=== PATIENT | male | born 1965 | race Caucasian/White ===

== ENCOUNTER 2019-08-13 23:54 | Inpatient (IN) | payer OTHER ==
[~2019-08-13] VITALS: Ht 170.2 cm; Wt 100.0 kg
[2019-08-14] MEDS ORDERED: normal saline 1000ML IV soln IVB ONE ×2 (00:20)
[2019-08-14] MEDS ORDERED: pantoprazole 40 MG vial IV ONE (00:25)
[2019-08-14 00:35] LABS: BASOPHILS # (AUTO) 0.2 X10'3 (0-0.2); BASOPHILS % (AUTO) 1.2 % (0-1); EOSINOPHILS # (AUTO) 0.3 X10'3 (0-0.9); EOSINOPHILS % (AUTO) 2.5 % (0-6); HEMATOCRIT 46.8 % (42.0-52.0); LYMPHOCYTES # (AUTO) 5.4 X10'3 (1.1-4.8); LYMPHOCYTES % (AUTO) 39.4 % (21-51); MEAN CORPUSCULAR HEMOGLOBIN 31.1 PG (27.0-31.0); MEAN CORPUSCULAR HGB CONC 34.2 g/dL (33.0-36.5); MEAN PLATELET VOLUME 7.7 FL (7.4-10.4); MONOCYTES # (AUTO) 1.1 X10'3 (0-0.9); MONOCYTES % (AUTO) 7.9 % (2-12); NEUTROPHILS # (AUTO) 6.7 X10'3 (1.8-7.7); PLATELET COUNT 360 X10'3 (140-440); RED BLOOD COUNT 5.14 X10'6 (4.70-6.10); RED CELL DISTRIBUTION WIDTH 12.5 % (11.5-14.5); WHITE BLOOD COUNT 13.6 X10'3 (4.5-11.0)
[2019-08-14 00:46] LABS: ALANINE AMINOTRANSFERASE 12 U/L (12-78); ALBUMIN 3.4 G/DL (3.4-5.0); ALBUMIN/GLOBULIN RATIO 0.9 (1.1-1.5); ALKALINE PHOSPHATASE 91 IU/L (46-116); ANION GAP 7 (8-16); ASPARTATE AMINO TRANSFERASE 12 U/L (10-37); BILIRUBIN,TOTAL 0.2 MG/DL (0.1-1.0); BLOOD UREA NITROGEN 13 MG/DL (7-18); BUN/CREATININE RATIO 12.9 (5.4-32.0); CALCIUM 8.5 MG/DL (8.5-10.1); CHLORIDE 107 MMOL/L (99-107); CREATININE 1.01 MG/DL (0.60-1.10); GLUCOSE 113 MG/DL (70-104); POTASSIUM 3.5 MMOL/L (3.5-5.1); SODIUM 143 MMOL/L (135-145); eGFR 77 ML/MIN
[2019-08-14 00:57] LABS: PARTIAL THROMBOPLASTIN TIME 25 SECONDS (22-32)
[2019-08-14] MEDS ORDERED: ASPI-1053 PO (01:15)
[2019-08-14] MEDS ORDERED: MULT-933 PO (01:15)
[2019-08-14] MEDS ORDERED: S-AD200T6 PO (01:15)
[2019-08-14] MEDS ORDERED: SAW1CAPS5 PO (01:15)
[2019-08-14 02:16] LABS: BASOPHILS # (AUTO) 0.1 X10'3 (0-0.2); BASOPHILS % (AUTO) 0.4 % (0-1); EOSINOPHILS # (AUTO) 0.1 X10'3 (0-0.9); EOSINOPHILS % (AUTO) 0.3 % (0-6); HEMATOCRIT 42.1 % (42.0-52.0); HEMOGLOBIN 14.4 g/dl (14.0-17.9); LYMPHOCYTES # (AUTO) 1.5 X10'3 (1.1-4.8); LYMPHOCYTES % (AUTO) 6.9 % (21-51); MEAN CORPUSCULAR HEMOGLOBIN 30.9 PG (27.0-31.0); MEAN CORPUSCULAR HGB CONC 34.3 g/dL (33.0-36.5); MEAN CORPUSCULAR VOLUME 90.3 FL (78-98); MEAN PLATELET VOLUME 7.5 FL (7.4-10.4); MONOCYTES # (AUTO) 0.9 X10'3 (0-0.9); MONOCYTES % (AUTO) 4.4 % (2-12); NEUTROPHILS # (AUTO) 18.7 X10'3 (1.8-7.7); PLATELET COUNT 261 X10'3 (140-440); RED BLOOD COUNT 4.66 X10'6 (4.70-6.10); RED CELL DISTRIBUTION WIDTH 12.2 % (11.5-14.5); WHITE BLOOD COUNT 21.2 X10'3 (4.5-11.0)
--- NOTE | 2019-08-14 03:48 | NUR ---
dr ricardo at bedside for admission. current vss. pt denies any pain. just got up , ambulating with steady gait, to go to br. reports a small amt of bloody stool. pts has gone home for the night.
[2019-08-14] MEDS: normal saline 1000ml 1,000 ML IV SCH ×3 (04:11→19:48)
[2019-08-14] MEDS ORDERED: ondansetron/PF 4mg/2ml inj IV PRN (04:15)
[2019-08-14] MEDS ORDERED: mag hydrox/Alum hydrox/simeth 30ml oral suspension PO PRN (04:15)
[2019-08-14] MEDS ORDERED: magnesium hydroxide 30ml (MOM) UD suspension PO PRN (04:15)
[2019-08-14] MEDS ORDERED: acetaminophen 325mg tablet PO PRN (04:15)
[2019-08-14 05:39] VITALS: BP 130/96
--- NOTE | 2019-08-14 06:22 | NUR ---
Patient in room ED 12. I have received report from EMILEE ABDALLA and had the opportunity to ask questions and assume patient care. Addendum: 08/14/19 at 0639 by Maryjo Kline RN PATIENT IS IN ROOM 345B AND NOT IN ER 12.
--- NOTE | 2019-08-14 06:23 | NUR ---
Patient in room ED 12. I have received report from Gabriela and had the opportunity to ask questions and assume patient care.
[2019-08-14 07:03] VITALS: BP 124/86
[2019-08-14] MEDS ORDERED: levetiracetam inj 500 MG in normal saline 100ml IV soln 95 ML IV SCH (08:00)
[2019-08-14] MEDS ORDERED: PEG 3350/Na sulf,bicarb,Cl/KCl oral sol 4 liter bottle PO ONE ×3 (08:00→20:00)
[2019-08-14] MEDS: piperacillin/tazo 3.375gm/50ml 50 ML IV SCH ×2 (08:40→16:07)
[2019-08-14 09:00] LABS: BASOPHILS # (AUTO) 0.1 X10'3 (0-0.2); BASOPHILS % (AUTO) 0.8 % (0-1); EOSINOPHILS # (AUTO) 0.1 X10'3 (0-0.9); HEMATOCRIT 41.3 % (42.0-52.0); LYMPHOCYTES # (AUTO) 3.2 X10'3 (1.1-4.8); MEAN CORPUSCULAR HEMOGLOBIN 30.8 PG (27.0-31.0); MEAN CORPUSCULAR HGB CONC 33.8 g/dL (33.0-36.5); MEAN CORPUSCULAR VOLUME 91.1 FL (78-98); MEAN PLATELET VOLUME 7.5 FL (7.4-10.4); MONOCYTES % (AUTO) 8.3 % (2-12); NEUTROPHILS # (AUTO) 7.2 X10'3 (1.8-7.7); NEUTROPHILS % (AUTO) 61.9 % (42-75); PLATELET COUNT 257 X10'3 (140-440); RED BLOOD COUNT 4.53 X10'6 (4.70-6.10); RED CELL DISTRIBUTION WIDTH 12.5 % (11.5-14.5); WHITE BLOOD COUNT 11.6 X10'3 (4.5-11.0)
[2019-08-14 11:20] VITALS: BP 142/97
[2019-08-14 18:00] VITALS: BP 137/96
--- NOTE | 2019-08-14 18:48 | NUR ---
Received report from EMILEE Sibley. Patient is awake and alert on room air, in no apparent distress. Call light and items of frequent use within reach. Will continue to monitor.
--- NOTE | 2019-08-14 18:53 | NUR ---
Problems reprioritized. Patient report given, questions answered & plan of care reviewed with EMILEE SAMAYOA. Addendum: 08/14/19 at 1854 by Maryjo Kline RN Problems reprioritized. Patient report given, questions answered & plan of care reviewed with EMILEE SOE.
[2019-08-14] MEDS: lactobacillus rhamnosus 10,000 MMU CELLS/CAPSULE PO SCH (19:09)
[2019-08-15] VITALS (12 sets, daily range): BP systolic 124–144; BP diastolic 72–99
[2019-08-15] MEDS: piperacillin/tazo 3.375gm/50ml 50 ML IV SCH ×2 (00:36→08:37)
[2019-08-15 04:55] LABS: BASOPHILS # (AUTO) 0.1 X10'3 (0-0.2); BASOPHILS % (AUTO) 0.7 % (0-1); EOSINOPHILS # (AUTO) 0.2 X10'3 (0-0.9); EOSINOPHILS % (AUTO) 2.2 % (0-6); HEMOGLOBIN 12.5 g/dl (14.0-17.9); LYMPHOCYTES # (AUTO) 3.5 X10'3 (1.1-4.8); LYMPHOCYTES % (AUTO) 32.5 % (21-51); MEAN CORPUSCULAR HEMOGLOBIN 31.9 PG (27.0-31.0); MEAN CORPUSCULAR HGB CONC 34.7 g/dL (33.0-36.5); MEAN CORPUSCULAR VOLUME 92.1 FL (78-98); MEAN PLATELET VOLUME 7.8 FL (7.4-10.4); MONOCYTES % (AUTO) 9.1 % (2-12); NEUTROPHILS # (AUTO) 5.9 X10'3 (1.8-7.7); NEUTROPHILS % (AUTO) 55.5 % (42-75); PLATELET COUNT 237 X10'3 (140-440); RED CELL DISTRIBUTION WIDTH 12.4 % (11.5-14.5); WHITE BLOOD COUNT 10.7 X10'3 (4.5-11.0)
--- NOTE | 2019-08-15 06:42 | NUR ---
Problems reprioritized. Patient report given, questions answered & plan of care reviewed with EMILEE Arreola.
--- NOTE | 2019-08-15 06:47 | NUR ---
Patient in room [facility] 345. I have received report from colton ford and had the opportunity to ask questions and assume patient care.
[2019-08-15] MEDS: lactobacillus rhamnosus 10,000 MMU CELLS/CAPSULE PO SCH (07:09)
[2019-08-15] MEDS: normal saline 1000ml 1,000 ML IV SCH (10:11)
[2019-08-15] MEDS ORDERED: MIDAZolam 5mg/5ml vial ONE (10:12)
[2019-08-15] MEDS ORDERED: fentaNYL/PF 50MCG/1 ML 2ML syringe ONE (10:12)
--- NOTE | 2019-08-15 17:14 | NUR ---
Student documentation: I have reviewed all interventions, assessments performed and documented by Jett KELLY
--- NOTE | 2019-08-15 17:21 | NUR ---
PT DISCHARGED IN STABLE CONDITION. LEFT FACILITY IN PRIVATE VEHICLE. 2 IV DC CANULA INTACT. FOLLOW UP INSTRUCTIONS GIVEN, ALL QUESTIONS ANSWERED. Addendum: 08/15/19 at 1722 by Faye Koo RN Amended: Links added.
== END 2019-08-15 16:59 | disposition home or self-care (01) | DRG 393 ==
LOC: ER 23:57 → ED HOLD 08-14 05:21 → CMPBEDREQ 08-14 05:33 → SUR 3N 08-14 06:38 → OBSVTOIN 08-14 09:30
PROVIDERS: ADMIT Internal Medicine; ATTEND Family Medicine
PROC: 0DBN8ZZ Excision of Sigmoid Colon, Via Natural or Artificial Opening Endoscopic (ICD-10-PCS; principal; 2019-08-15)
DX: K63.5 Polyp of colon (principal); K57.31 Diverticulosis of large intestine without perforation or abscess with bleeding; D62 Acute posthemorrhagic anemia; D72.829 Elevated white blood cell count, unspecified; R61 Generalized hyperhidrosis; I95.9 Hypotension, unspecified; E66.9 Obesity, unspecified; F17.210 Nicotine dependence, cigarettes, uncomplicated; K76.0 Fatty (change of) liver, not elsewhere classified; F12.90 Cannabis use, unspecified, uncomplicated; Z68.34 Body mass index [BMI] 34.0-34.9, adult
CPT/HCPCS: 36415; 43239; 45385; 71045; 80053; 83605; 84484; 85025; 85610; 85730; 86885; 86900; 86901; 87081; 93005; 96361; 96374; 99152; 99153; 99285; A4620; C1773; C9113; G0378; J1953; J2250; J2543; J3010; J7030; J7040

== ENCOUNTER 2020-03-05 10:57 | Inpatient (IN) | payer OTHER ==
[~2020-03-05] VITALS: Ht 170.2 cm; Wt 102.3 kg
[~2020-03-05 10:57] MED LIST: ASPI-1053 PO; MULT-933 PO; S-AD200T6 PO; SAW1CAPS5 PO
[2020-03-05] MEDS ORDERED: normal saline 1000ML IV soln IVB ONE (11:25)
[2020-03-05] MEDS ORDERED: morphine 4 MG/ML inj SYRINge IV PRN (11:25)
[2020-03-05] MEDS ORDERED: ondansetron/PF 4mg/2ml inj IV ONE (11:25)
[2020-03-05] MEDS ORDERED: piperacillin/tazo 3.375gm/50ml 50 ML IV ONE (11:30)
[2020-03-05 12:03] LABS: BASOPHILS % (AUTO) 0.4 % (0-1); EOSINOPHILS % (AUTO) 0.4 % (0-6); HEMATOCRIT 47.7 % (42.0-52.0); HEMOGLOBIN 16.4 g/dl (14.0-17.9); LYMPHOCYTES # (AUTO) 1.3 X10'3 (1.1-4.8); LYMPHOCYTES % (AUTO) 10.3 % (21-51); MEAN CORPUSCULAR HEMOGLOBIN 31.2 PG (27.0-31.0); MEAN CORPUSCULAR HGB CONC 34.3 g/dL (33.0-36.5); MEAN CORPUSCULAR VOLUME 91.1 FL (78-98); MEAN PLATELET VOLUME 7.5 FL (7.4-10.4); MONOCYTES # (AUTO) 0.8 X10'3 (0-0.9); MONOCYTES % (AUTO) 6.4 % (2-12); NEUTROPHILS # (AUTO) 10.2 X10'3 (1.8-7.7); NEUTROPHILS % (AUTO) 82.5 % (42-75); PLATELET COUNT 265 X10'3 (140-440); RED BLOOD COUNT 5.24 X10'6 (4.70-6.10); RED CELL DISTRIBUTION WIDTH 13.1 % (11.5-14.5); WHITE BLOOD COUNT 12.3 X10'3 (4.5-11.0)
[2020-03-05 12:18] LABS: ALANINE AMINOTRANSFERASE 829 U/L (12-78); ALBUMIN 3.4 G/DL (3.4-5.0); ALBUMIN/GLOBULIN RATIO 0.8 (1.1-1.5); ALKALINE PHOSPHATASE 477 IU/L (46-116); ANION GAP 10 (8-16); ASPARTATE AMINO TRANSFERASE 259 U/L (10-37); BILIRUBIN,TOTAL 2.2 MG/DL (0.1-1.0); BLOOD UREA NITROGEN 7 MG/DL (7-18); BUN/CREATININE RATIO 9.5 (5.4-32.0); CALCIUM 9.2 MG/DL (8.5-10.1); CHLORIDE 100 MMOL/L (99-107); CREATININE 0.74 MG/DL (0.60-1.10); ETHANOL < 0.010 GM/DL (0.0-0.010); GLUCOSE 114 MG/DL (70-104); POTASSIUM 3.3 MMOL/L (3.5-5.1); SODIUM 136 MMOL/L (135-145); TOTAL CARBON DIOXIDE 26.4 MMOL/L (24-32); TOTAL PROTEIN 7.8 G/DL (6.4-8.2); eGFR > 90 ML/MIN
[2020-03-05 12:37] LABS: LIPASE 4363 U/L (73-393)
[2020-03-05] MEDS ORDERED: NO HOME MEDS (12:41)
[2020-03-05 13:08] LABS: CLARITY,URINE CLEAR (Clear); COLOR,URINE YELLOW (Yellow); GLUCOSE, URINE NEGATIVE (Neg); KETONES,URINE 15 mg/dl (Neg); LEUKOCYTE ESTERASE ,URINE NEGATIVE (Neg); NITRITES, URINE NEGATIVE (Neg); OCCULT BLOOD,URINE SMALL (Neg); PROTEIN,URINE NEGATIVE (Neg); UA COLLECTION TYPE CLN CATCH MIDSTREAM; UROBILINOGEN,URINE 0.2 E.U/dL (0.2-1.0)
[2020-03-05] MEDS ORDERED: diphenhydrAMINE 50 mg/ml inj IV PRN (13:15)
[2020-03-05] MEDS ORDERED: HYDROcodone/acetaminophen 5mg/325mg tablet PO PRN (13:15)
[2020-03-05] MEDS ORDERED: magnesium hydroxide 30ml (MOM) UD suspension PO PRN (13:15)
[2020-03-05] MEDS ORDERED: potassium CL 10mEq/100ml bag 100 ML IV PRN (13:15)
[2020-03-05] MEDS ORDERED: potassium Cl 20 mEq SR tablet PO PRN (13:15)
[2020-03-05] MEDS ORDERED: magnesium 4gm in 100ml NS 100 ML IV PRN (13:15)
[2020-03-05] MEDS ORDERED: magnesium Cl slow-release 64mg tablet PO PRN (13:15)
[2020-03-05] MEDS ORDERED: diphenhydrAMINE 25mg capsule PO PRN (13:15)
[2020-03-05] MEDS ORDERED: metoclopramide 5 mg/ml inj IV PRN (13:15)
[2020-03-05] MEDS ORDERED: bisacodyl 10mg suppository rectal RC PRN (13:15)
[2020-03-05] MEDS ORDERED: magnesium 2GM in 50ml NS 50 ML IV PRN (13:15)
[2020-03-05] MEDS ORDERED: mag hydrox/Alum hydrox/simeth 30ml oral suspension PO PRN (13:15)
[2020-03-05] MEDS ORDERED: acetaminophen 325mg tablet PO PRN ×2 (13:15)
[2020-03-05] MEDS ORDERED: ondansetron/PF 4mg/2ml inj IV PRN (13:15)
[2020-03-05 13:17] LABS: URINE AMPHETAMINE SCREEN NEGATIVE (Neg); URINE BARBITUATE SCREEN NEGATIVE (Neg); URINE BENZODIAZEPINES SCREEN NEGATIVE (Neg); URINE CANNABINOID SCREEN POSITIVE (Neg); URINE COCAINE SCREEN NEGATIVE (Neg); URINE METHADONE SCREEN NEGATIVE (Neg); URINE OPIATE SCREEN POSITIVE (Neg); URINE PHENCYCLIDINE SCREEN NEGATIVE (Neg)
[2020-03-05 13:19] LABS: BACTERIA,URINE FEW /HPF (Neg); MUCUS STRANDS FEW /LPF (Neg); RBC,URINE 0-2 /HPF (0-2); SQUAMOUS EPITHELIAL CELL,UR FEW /LPF (FEW); WBC,URINE 0-4 /HPF (0-4)
[2020-03-05 13:43] LABS: HEMOGLOBIN A1C 5.5 % (4.5-6.2)
[2020-03-05] MEDS: dextrose 5%-normal saline 1,000 ML IV SCH ×2 (13:50→20:54)
--- NOTE | 2020-03-05 15:23 | NUR ---
Pt returned from MRI
[2020-03-05 16:35] VITALS: BP 138/88
--- NOTE | 2020-03-05 16:35 | NUR ---
Patient in room ORTHO 4007. I have received report from JUSTINO HEBERT and had the opportunity to ask questions and assume patient care.
[2020-03-05] MEDS: potassium CL 10mEq/100ml bag 100 ML IV PRN ×3 (17:04→22:02)
--- NOTE | 2020-03-05 17:32 | NUR ---
PAGER ID: [phone] MESSAGE: AYDIN [id number] RE: KNIGHT [id number] PT SMOKES 4 CIGS/DAY, STATES HE NEEDS A PATCH.
--- NOTE | 2020-03-05 18:18 | NUR ---
Patient in room ORTHO 4007. I have received report from EMILEE Fatima and had the opportunity to ask questions and assume patient care.
--- NOTE | 2020-03-05 18:18 | NUR ---
Problems reprioritized. Patient report given, questions answered & plan of care reviewed with NICHOLE HEBERT.
[2020-03-05] MEDS: piperacillin/tazo 3.375gm/50ml 50 ML IV SCH (18:37)
[2020-03-05] MEDS: nicotine 21mg patch - 24 hr TD SCH (18:37)
[2020-03-05] MEDS: morphine 2 MG/ML inj. syringe IV PRN ×2 (18:47→23:19)
[2020-03-05] MEDS: K and/or MAG REPLACEMENT MC SCH (19:51)
[2020-03-05] MEDS: heparin, porcine 5000 units/ml vial SQ SCH (20:50)
[2020-03-05 22:00] VITALS: BP 143/93
[2020-03-06] MEDS: piperacillin/tazo 3.375gm/50ml 50 ML IV SCH ×4 (00:22→23:42)
--- NOTE | 2020-03-06 00:45 | NUR ---
Moved patient to 4014b from room 4007, moved him with all of his belongings at this time.
[2020-03-06] MEDS: potassium CL 10mEq/100ml bag 100 ML IV PRN (01:25)
[2020-03-06] MEDS: morphine 2 MG/ML inj. syringe IV PRN ×2 (04:40→07:27)
[2020-03-06 05:22] LABS: BASOPHILS % (AUTO) 0.3 % (0-1); EOSINOPHILS # (AUTO) 0.1 X10'3 (0-0.9); EOSINOPHILS % (AUTO) 0.6 % (0-6); HEMATOCRIT 44.7 % (42.0-52.0); HEMOGLOBIN 15.2 g/dl (14.0-17.9); LYMPHOCYTES # (AUTO) 1.3 X10'3 (1.1-4.8); LYMPHOCYTES % (AUTO) 10.5 % (21-51); MEAN CORPUSCULAR VOLUME 91.2 FL (78-98); MEAN PLATELET VOLUME 7.7 FL (7.4-10.4); MONOCYTES % (AUTO) 7.8 % (2-12); NEUTROPHILS # (AUTO) 9.9 X10'3 (1.8-7.7); NEUTROPHILS % (AUTO) 80.8 % (42-75); PLATELET COUNT 235 X10'3 (140-440); RED CELL DISTRIBUTION WIDTH 13.2 % (11.5-14.5); WHITE BLOOD COUNT 12.3 X10'3 (4.5-11.0)
[2020-03-06 05:30] LABS: ALANINE AMINOTRANSFERASE 579 U/L (12-78); ALBUMIN 2.8 G/DL (3.4-5.0); ALBUMIN/GLOBULIN RATIO 0.8 (1.1-1.5); ALKALINE PHOSPHATASE 381 IU/L (46-116); ANION GAP 8 (8-16); ASPARTATE AMINO TRANSFERASE 143 U/L (10-37); BILIRUBIN,TOTAL 1.5 MG/DL (0.1-1.0); BLOOD UREA NITROGEN 9 MG/DL (7-18); BUN/CREATININE RATIO 12.5 (5.4-32.0); CALCIUM 8.9 MG/DL (8.5-10.1); CHLORIDE 105 MMOL/L (99-107); CHOL/HDL RATIO 4.3 (0.00-4.99); CHOLESTEROL 160 MG/DL (0-200); CREATININE 0.72 MG/DL (0.60-1.10); GLUCOSE 100 MG/DL (70-104); HDL CHOLESTEROL 37 MG/DL (35-60); LDL CHOLESTEROL 100 MG/DL (50-100); LIPASE 1372 U/L (73-393); MAGNESIUM 1.8 MG/DL (1.5-2.4); POTASSIUM 3.8 MMOL/L (3.5-5.1); SODIUM 138 MMOL/L (135-145); TOTAL CARBON DIOXIDE 25.4 MMOL/L (24-32); TOTAL PROTEIN 6.5 G/DL (6.4-8.2); TRIGLYCERIDES 157 MG/DL (20-135); eGFR > 90 ML/MIN
--- NOTE | 2020-03-06 06:32 | NUR ---
Problems reprioritized. Patient report given, questions answered & plan of care reviewed with EMILEE Chapa.
[2020-03-06 06:52] VITALS: BP 131/84
[2020-03-06] MEDS: heparin, porcine 5000 units/ml vial SQ SCH ×2 (07:10→20:41)
[2020-03-06] MEDS: pantoprazole 40mg Tablet.DR PO SCH (07:16)
[2020-03-06] MEDS: nicotine 21mg patch - 24 hr TD SCH (07:26)
[2020-03-06] MEDS: K and/or MAG REPLACEMENT MC SCH ×2 (08:00→20:00)
[2020-03-06] MEDS: dextrose 5%-normal saline 1,000 ML IV SCH ×2 (09:30→20:41)
[2020-03-06 09:49] VITALS: BP 131/100
[2020-03-06] MEDS: HYDROcodone/acetaminophen 10/325mg tab PO PRN ×2 (15:26→20:40)
[2020-03-06 18:00] VITALS: BP 139/88
--- NOTE | 2020-03-06 18:03 | NUR ---
Problems reprioritized. Patient report given, questions answered & plan of care reviewed with Negrita HEBERT.
--- NOTE | 2020-03-06 18:31 | NUR ---
Patient in room ORTHO 4014. I have received report from EMILEE Chapa and had the opportunity to ask questions and assume patient care.
[2020-03-06] MEDS: lactobacillus rhamnosus 10,000 MMU CELLS/CAPSULE PO SCH (20:40)
[2020-03-06 22:00] VITALS: BP 140/98
[2020-03-07] VITALS (19 sets, daily range): BP systolic 114–137; BP diastolic 67–95
[2020-03-07] MEDS: HYDROcodone/acetaminophen 10/325mg tab PO PRN ×4 (01:39→23:36)
[2020-03-07] MEDS: dextrose 5%-normal saline 1,000 ML IV SCH ×3 (05:33→23:40)
[2020-03-07] MEDS ORDERED: INDOCYANINE GREEN 25 MG/10 ML VIAL IV ONE (06:00)
[2020-03-07 06:04] LABS: BASOPHILS # (AUTO) 0.1 X10'3 (0-0.2); BASOPHILS % (AUTO) 0.6 % (0-1); EOSINOPHILS # (AUTO) 0.3 X10'3 (0-0.9); EOSINOPHILS % (AUTO) 3.1 % (0-6); HEMATOCRIT 42.4 % (42.0-52.0); HEMOGLOBIN 14.2 g/dl (14.0-17.9); LYMPHOCYTES # (AUTO) 2.3 X10'3 (1.1-4.8); LYMPHOCYTES % (AUTO) 24.1 % (21-51); MEAN CORPUSCULAR HEMOGLOBIN 30.7 PG (27.0-31.0); MEAN CORPUSCULAR HGB CONC 33.6 g/dL (33.0-36.5); MEAN CORPUSCULAR VOLUME 91.6 FL (78-98); MONOCYTES # (AUTO) 1.1 X10'3 (0-0.9); MONOCYTES % (AUTO) 11.3 % (2-12); NEUTROPHILS # (AUTO) 5.9 X10'3 (1.8-7.7); NEUTROPHILS % (AUTO) 60.9 % (42-75); PLATELET COUNT 239 X10'3 (140-440); RED BLOOD COUNT 4.63 X10'6 (4.70-6.10); WHITE BLOOD COUNT 9.7 X10'3 (4.5-11.0)
--- NOTE | 2020-03-07 06:15 | NUR ---
Pharmacy delivered IC Green.
--- NOTE | 2020-03-07 06:16 | NUR ---
Called pharmacy to get further instructions on how to administer IC Green. Pharmacy could not find information regarding administration. Advised to speak with my charge nurse.
--- NOTE | 2020-03-07 06:20 | NUR ---
Spoke with my charge nurse, could not advise on how to administer.
[2020-03-07 06:23] LABS: ALANINE AMINOTRANSFERASE 392 U/L (12-78); ALBUMIN 2.5 G/DL (3.4-5.0); ALBUMIN/GLOBULIN RATIO 0.7 (1.1-1.5); ALKALINE PHOSPHATASE 285 IU/L (46-116); ANION GAP 8 (8-16); ASPARTATE AMINO TRANSFERASE 83 U/L (10-37); BILIRUBIN,TOTAL 0.9 MG/DL (0.1-1.0); BLOOD UREA NITROGEN 7 MG/DL (7-18); BUN/CREATININE RATIO 9.7 (5.4-32.0); CALCIUM 8.6 MG/DL (8.5-10.1); CHLORIDE 107 MMOL/L (99-107); CREATININE 0.72 MG/DL (0.60-1.10); GLUCOSE 97 MG/DL (70-104); LIPASE 431 U/L (73-393); MAGNESIUM 1.9 MG/DL (1.5-2.4); PHOSPHORUS 2.8 MG/DL (2.3-4.5); POTASSIUM 3.3 MMOL/L (3.5-5.1); SODIUM 143 MMOL/L (135-145); eGFR > 90 ML/MIN
--- NOTE | 2020-03-07 06:29 | NUR ---
Problems reprioritized. Patient report given, questions answered & plan of care reviewed with EMILEE Chapa.
--- NOTE | 2020-03-07 06:33 | NUR ---
Spoke with MD Fernandez, he was very clear that he wanted medication administered at 0600. Gave orders to "just push it". Clarified with MD Fernandez that we are Ortho/ Neuro and are not familiar with medication, again he made very clear to push IC green Via IV.
[2020-03-07] MEDS: heparin, porcine 5000 units/ml vial SQ SCH ×2 (07:05→19:23)
[2020-03-07] MEDS: lactobacillus rhamnosus 10,000 MMU CELLS/CAPSULE PO SCH ×2 (07:05→19:22)
[2020-03-07] MEDS: pantoprazole 40mg Tablet.DR PO SCH (07:05)
[2020-03-07] MEDS: K and/or MAG REPLACEMENT MC SCH ×2 (07:06→20:00)
[2020-03-07] MEDS ORDERED: LIDOcaine 1% 30ml preserv. free vial ONE (07:10)
[2020-03-07] MEDS ORDERED: BUPIVAcaine/PF 2.5 mg/ml (0.25%) 30ml vial ONE (07:10)
[2020-03-07] MEDS: nicotine 21mg patch - 24 hr TD SCH (07:26)
[2020-03-07] MEDS: piperacillin/tazo 3.375gm/50ml 50 ML IV SCH (07:58)
[2020-03-07] MEDS ORDERED: ringers solution, lacted 1,000 ML IV SCH (07:58)
[2020-03-07] MEDS ORDERED: morphine 4 MG/ML inj SYRINge IV PRN (08:00)
[2020-03-07] MEDS ORDERED: proCHLORperazine 10 MG/2 ml inj IV PRN (08:00)
[2020-03-07] MEDS ORDERED: meperidine/PF 25mg/ml syringe IV PRN ×3 (08:00)
[2020-03-07] MEDS ORDERED: ondansetron/PF 4mg/2ml inj IV PRN (08:00)
[2020-03-07] MEDS ORDERED: morphine 2 MG/ML inj. syringe IV PRN (08:00)
[2020-03-07] MEDS ORDERED: sevoflurane 250ml liquid IH ONE (08:07)
[2020-03-07] MEDS ORDERED: midazolam 2 mg/2 ml injection ONE (08:09)
[2020-03-07] MEDS ORDERED: rocuronium 10mg/ml inj IV ONE (08:09)
[2020-03-07] MEDS ORDERED: fentaNYL /PF 50mcg/ml 5ml ampule ONE (08:09)
[2020-03-07] MEDS ORDERED: propofol inj 20 ML IV ONE (08:09)
[2020-03-07] MEDS ORDERED: dexamethasone sod phosphate 4mg/ml inj. ONE (08:27)
[2020-03-07] MEDS ORDERED: ondansetron/PF 4mg/2ml inj ONE (09:14)
[2020-03-07] MEDS ORDERED: glycopyrrolate 0.2mg/ml inj ONE (09:16)
[2020-03-07] MEDS ORDERED: neostigmine methylsulfate 1 MG/ML 10ml vial ONE (09:16)
[2020-03-07] MEDS ORDERED: HYDROcodone/acetaminophen 5mg/325mg tablet PO PRN (09:35)
--- NOTE | 2020-03-07 09:40 | NUR ---
Received from OR via , accompanied by Anesthesiologist DR NORTON and report given by Anesthesiolgist. PT IS AWAKE AND ORIENTED, NO C/O PAIN, SKIN WARM AND PINK, ABD HAS 4 LARGE BA'S CD, SCD'S BILAT LE'S, PIV RIGHT HAND 20G WITH LR 100ML/HR.
--- NOTE | 2020-03-07 10:40 | NUR ---
Report called to receiving nurse. Transferred via BED Belongings . Special Issues communicated to receiving nurse SILVIA HEBERT. PT IS AWAKE, ALERT, MILD PAIN CONTROLLED WITH DEMEROL, SCD'S, BA'S X4 CD, PIV PATENT, KAILEY ICE CHIPS, VSS, PT MEETS DISCHARGE CRITERIA.
[2020-03-07] MEDS ORDERED: nicotine 21mg patch - 24 hr TD ONE (11:15)
[2020-03-07] MEDS: potassium Cl 20 mEq SR tablet PO PRN ×3 (13:59→22:52)
--- NOTE | 2020-03-07 17:12 | NUR ---
Bladder scanned patient. Urine amount is 215, encouraged patient to walk and urinate standing.
--- NOTE | 2020-03-07 18:02 | NUR ---
Problems reprioritized. Patient report given, questions answered & plan of care reviewed with Negrita HEBERT.
--- NOTE | 2020-03-07 18:33 | NUR ---
Patient in room ORTHO 4014. I have received report from EMILEE Chapa and had the opportunity to ask questions and assume patient care.
[2020-03-08 02:00] VITALS: BP 126/87
[2020-03-08] MEDS: HYDROcodone/acetaminophen 10/325mg tab PO PRN ×2 (03:39→07:30)
--- NOTE | 2020-03-08 06:32 | NUR ---
Problems reprioritized. Patient report given, questions answered & plan of care reviewed with EMILEE Og.
[2020-03-08 06:41] LABS: ALANINE AMINOTRANSFERASE 305 U/L (12-78); ALBUMIN 2.4 G/DL (3.4-5.0); ALBUMIN/GLOBULIN RATIO 0.7 (1.1-1.5); ALKALINE PHOSPHATASE 229 IU/L (46-116); ANION GAP 6 (8-16); ASPARTATE AMINO TRANSFERASE 78 U/L (10-37); BASOPHILS # (AUTO) 0.1 X10'3 (0-0.2); BASOPHILS % (AUTO) 0.4 % (0-1); BILIRUBIN,TOTAL 0.6 MG/DL (0.1-1.0); BLOOD UREA NITROGEN 6 MG/DL (7-18); BUN/CREATININE RATIO 9.1 (5.4-32.0); CALCIUM 8.5 MG/DL (8.5-10.1); CHLORIDE 107 MMOL/L (99-107); CREATININE 0.66 MG/DL (0.60-1.10); EOSINOPHILS # (AUTO) 0.1 X10'3 (0-0.9); EOSINOPHILS % (AUTO) 0.5 % (0-6); GLUCOSE 115 MG/DL (70-104); HEMATOCRIT 37.5 % (42.0-52.0); HEMOGLOBIN 12.7 g/dl (14.0-17.9); LIPASE 94 U/L (73-393); LYMPHOCYTES # (AUTO) 2.2 X10'3 (1.1-4.8); LYMPHOCYTES % (AUTO) 16.7 % (21-51); MAGNESIUM 1.7 MG/DL (1.5-2.4); MEAN CORPUSCULAR HEMOGLOBIN 30.9 PG (27.0-31.0); MEAN CORPUSCULAR HGB CONC 33.8 g/dL (33.0-36.5); MEAN CORPUSCULAR VOLUME 91.7 FL (78-98); MONOCYTES # (AUTO) 1.4 X10'3 (0-0.9); MONOCYTES % (AUTO) 10.7 % (2-12); NEUTROPHILS # (AUTO) 9.6 X10'3 (1.8-7.7); NEUTROPHILS % (AUTO) 71.7 % (42-75); PLATELET COUNT 240 X10'3 (140-440); POTASSIUM 3.7 MMOL/L (3.5-5.1); RED BLOOD COUNT 4.09 X10'6 (4.70-6.10); RED CELL DISTRIBUTION WIDTH 13.3 % (11.5-14.5); SODIUM 141 MMOL/L (135-145); TOTAL CARBON DIOXIDE 27.7 MMOL/L (24-32); TOTAL PROTEIN 5.9 G/DL (6.4-8.2); WHITE BLOOD COUNT 13.4 X10'3 (4.5-11.0); eGFR > 90 ML/MIN
--- NOTE | 2020-03-08 06:47 | NUR ---
Patient in room ORTHO 4014. I have received report from Negrita HEBERT and had the opportunity to ask questions and assume patient care.
[2020-03-08 06:50] VITALS: BP 126/92
[2020-03-08] MEDS: lactobacillus rhamnosus 10,000 MMU CELLS/CAPSULE PO SCH (07:25)
[2020-03-08] MEDS: pantoprazole 40mg Tablet.DR PO SCH (07:25)
[2020-03-08] MEDS: heparin, porcine 5000 units/ml vial SQ SCH (07:25)
[2020-03-08] MEDS: nicotine 21mg patch - 24 hr TD SCH (07:27)
[2020-03-08] MEDS: K and/or MAG REPLACEMENT MC SCH (07:31)
[2020-03-08] MEDS: dextrose 5%-normal saline 1,000 ML IV SCH (09:32)
[2020-03-08] MEDS ORDERED: HYDR-4383 PO (10:11)
[2020-03-08 10:12] VITALS: BP 128/90
--- NOTE | 2020-03-08 11:20 | NUR ---
Patient discharged with all belongings. to take pt home. Discharge paperwork gone over with pt and signed. Pt walked to front lobby with PCT.
== END 2020-03-08 11:20 | disposition home or self-care (01) | DRG 417 ==
LOC: ER 10:57 → ED HOLD 13:11 → ORTHO 4S 16:44
PROVIDERS: ADMIT Family Medicine; ATTEND Surgery
PROC: 8E0W4CZ Robotic Assisted Procedure of Trunk Region, Percutaneous Endoscopic Approach (ICD-10-PCS; 2020-03-07)
PROC: BF131ZZ Fluoroscopy of Gallbladder and Bile Ducts using Low Osmolar Contrast (ICD-10-PCS; 2020-03-07)
PROC: 0FT44ZZ Resection of Gallbladder, Percutaneous Endoscopic Approach (ICD-10-PCS; principal; 2020-03-07 08:07)
DX: K80.65 Calculus of gallbladder and bile duct with chronic cholecystitis with obstruction (principal); K85.10 Biliary acute pancreatitis without necrosis or infection; E87.6 Hypokalemia; F12.90 Cannabis use, unspecified, uncomplicated; F17.200 Nicotine dependence, unspecified, uncomplicated; D72.829 Elevated white blood cell count, unspecified; E66.9 Obesity, unspecified; Z68.35 Body mass index [BMI] 35.0-35.9, adult; K82.8 Other specified diseases of gallbladder; K66.0 Peritoneal adhesions (postprocedural) (postinfection)
CPT/HCPCS: 36415; 71045; 74176; 74181; 76700; 80053; 80061; 80305; 80320; 81001; 82948; 83036; 83605; 83690; 83735; 84100; 84145; 85025; 86885; 86900; 86901; 87040; 87081; 93005; 96374; 99285; A4215; A4618; G0378; J1100; J1644; J2001; J2175; J2250; J2270; J2405; J2543; J2704; J2710; J3010; J3480; J3490; J7030; J7042; J7120